=== PATIENT | male | born 1990 | race Caucasian/White ===

== ENCOUNTER 2018-04-09 15:46 | Emergency (ER) | payer OTHER ==
[~2018-04-09] VITALS: Ht 182.9 cm; Wt 100.0 kg
[2018-04-09 16:07] VITALS: BP 128/93
[2018-04-09] MEDS ORDERED: LORazepam 1 MG tablet PO ONE (17:15)
== END 2018-04-09 17:34 | disposition home or self-care (01) ==
LOC: ER 15:46
DX: G40.909 Epilepsy, unspecified, not intractable, without status epilepticus (principal); F12.90 Cannabis use, unspecified, uncomplicated; Z88.8 Allergy status to other drugs, medicaments and biological substances
CPT/HCPCS: 99283